=== PATIENT | male | born 2000 | race Caucasian/White ===

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

== ENCOUNTER 2024-12-06 20:35 | Emergency (ER) | payer BC, OTHER ==
[~2024-12-06] VITALS: Ht 177.8 cm; Wt 137.0 kg
[2024-12-06 20:47] VITALS: BP 158/89; TEMP 98.8; O2SAT 99
[2024-12-06] MEDS: BOOSTRIX VACCINE (TETANUS/DIPHTH/ACEL. PERTUSSIS) 0.5ML SYR IM.IMMUN ONE (22:08)
== END 2024-12-06 22:13 | disposition home or self-care (01) ==
LOC: M ED 20:35
DX: S61.217A Laceration without foreign body of left little finger without damage to nail, initial encounter (principal); Y92.9 Unspecified place or not applicable; Y93.9 Activity, unspecified; Y99.0 Civilian activity done for income or pay; F10.10 Alcohol abuse, uncomplicated; Z23 Encounter for immunization